=== PATIENT | female | born 1970 | race African-American/Black ===

== ENCOUNTER 2018-06-03 02:33 | Inpatient (IN) | payer MEDICAID, OTHER ==
[~2018-06-03] VITALS: Ht 170.2 cm; Wt 74.8 kg
[~2018-06-03 02:33] MED LIST: AMLO10TA80 PO; GABA-531 PO; HYDR25TA PO; L25 PO
[2018-06-03] MEDS ORDERED: VISCOUS LIDOCAINE 2% 15 ML UDC PO STA (03:12)
[2018-06-03] MEDS ORDERED: FAMOTIDINE 20MG/2ML VIAL IV STA (03:12)
[2018-06-03] MEDS ORDERED: MAGNESIUM/ALUMINUM HYDROXIDE/SIMETHICONE 30ML UDC PO STA (03:12)
[2018-06-03] MEDS ORDERED: SODIUM CHLORIDE 0.9% 1,000 ML IV ONE ×2 (03:12→06:30)
[2018-06-03] MEDS ORDERED: KETOROLAC 30MG/ML VIAL IV STA (03:12)
[2018-06-03] MEDS ORDERED: ONDANSETRON HCL 4MG/2ML INJ IV STA (03:12)
[2018-06-03 03:50] LABS: BASOPHILS % 0.3 % (0.0-2.0); HEMATOCRIT. 38.7 % (36.0-48.0); HEMOGLOBIN. 12.8 g/dL (12.0-16.0); LYMPHOCYTES % 7.5 % (20.0-50.0); MEAN CORPUSCULAR HEMOGLOBIN 30.1 pg (28.0-32.0); MEAN CORPUSCULAR VOLUME 91.2 fL (81.0-99.0); MEAN PLATELET VOLUME 9.3 fl (7.4-10.4); MONOCYTES % 5.8 % (2.0-8.0); NEUTROPHILS % 86.4 % (40.0-76.0); PLATELET 158 x1000/uL (130-400); RED BLOOD CELL COUNT 4.24 mill/uL (4.2-5.4); RED CELL DISTRIBUTION WIDTH 15.8 % (11.6-14.6)
[2018-06-03 03:56] LABS: CHLORIDE 107 mEq/L (98-107)
[2018-06-03] MEDS ORDERED: POTASSIUM CHLORIDE INJ 40 MEQ in DEXT 5% WATER 250 ML IV ONE (06:30)
[2018-06-03] MEDS ORDERED: MORPHINE SULFATE 4 MG/ML CPJ (NOT FOR IM USE) IV ONE (06:30)
[2018-06-03] MEDS: SODIUM CHLORIDE 0.9% 1,000 ML IV SCH ×3 (08:52→23:26)
[2018-06-03] MEDS ORDERED: ONDANSETRON HCL 4MG/2ML INJ IV PRN (09:00)
[2018-06-03] MEDS ORDERED: DIPHENHYDRAMINE 50MG/ML VIAL IV PRN (09:00)
[2018-06-03] MEDS ORDERED: ACETAMINOPHEN 325MG TABLET PO PRN (09:00)
[2018-06-03] MEDS ORDERED: MAGNESIUM/ALUMINUM HYDROXIDE/SIMETHICONE 30ML UDC PO PRN (09:00)
[2018-06-03] MEDS ORDERED: ZOLPIDEM TARTRATE 5MG TABLET PO PRN (09:00)
[2018-06-03] MEDS ORDERED: TRAMADOL 50MG TABLET PO PRN (09:00)
[2018-06-03] MEDS ORDERED: IPRATROPIUM/ALBUTEROL 0.5-3(2.5)MG/3ML NEB INH PRN (09:00)
[2018-06-03] MEDS ORDERED: NITROGLYCERIN 0.4MG TABLET SL SL PRN (09:00)
[2018-06-03] MEDS ORDERED: DOCUSATE SODIUM 100MG CAPSULE PO PRN (09:00)
[2018-06-03] MEDS ORDERED: LORAZEPAM 0.5MG TABLET PO PRN (09:00)
[2018-06-03] MEDS: CLONIDINE 0.1MG TABLET PO PRN ×2 (09:37→14:24)
[2018-06-03 09:55] LABS: CLARITY URINE CLEAR (CLEAR); COLOR URINE YELLOW (YELLOW); KETONES URINE 2+ (NEGATIVE); LEUKOCYTE ESTERASE URINE NEGATIVE (NEGATIVE); NITRITE URINE NEGATIVE (NEGATIVE); OCCULT BLOOD URINE NEGATIVE (NEGATIVE); PH URINE 6.5 (4.5-8.0); PROTEIN URINE NEGATIVE (NEGATIVE); SPECIFIC GRAVITY URINE 1.015 (1.005-1.030); UROBILINOGEN URINE 0.2 E.U./dL (0.2-1.0)
[2018-06-03 10:10] LABS: CHLORIDE 106 mEq/L (98-107)
[2018-06-03 10:11] LABS: ETHANOL BLOOD < 10 mg/dL
[2018-06-03 10:21] LABS: AMYLASE 366 IU/L (25-115)
[2018-06-03 10:35] LABS: *AMPHETAMINES SCREEN URINE NEGATIVE (NEGATIVE); *BARBITURATES SCREEN URINE NEGATIVE (NEGATIVE); *BENZODIAZEPINES SCREEN URINE NEGATIVE (NEGATIVE); *COCAINE SCREEN URINE NEGATIVE (NEGATIVE)
[2018-06-03 10:36] LABS: CANNABINOID URINE SCREEN PRESUMTIVE POSITIVE (NEGATIVE); METHADONE URINE SCREEN NEGATIVE (NEGATIVE); OPIATES URINE SCREEN NEGATIVE (NEGATIVE); PHENCYCLIDINE URINE SCREEN NEGATIVE (NEGATIVE)
[2018-06-03 14:00] VITALS: BP 165/83
[2018-06-03] MEDS: ENOXAPARIN 40MG/0.4ML SYR SUBCUT SCH (14:25)
[2018-06-03] MEDS: PANTOPRAZOLE SODIUM 40 MG/VIAL IV SCH (14:25)
[2018-06-03] MEDS: KETOROLAC 15MG/ML VIAL IV PRN ×2 (14:29→20:19)
[2018-06-03 16:46] VITALS: BP 164/83
[2018-06-03] MEDS ORDERED: POTASSIUM CHLORIDE 20MEQ TABLET SR PO NR (18:45)
[2018-06-03 20:00] VITALS: BP 174/108
[2018-06-03] MEDS: METOPROLOL TARTRATE 25MG TABLET PO SCH ×2 (20:19→22:57)
[2018-06-04] VITALS: BP 149/97
[2018-06-04] MEDS: KETOROLAC 15MG/ML VIAL IV PRN ×3 (02:17→14:57)
[2018-06-04 04:00] VITALS: BP 157/103
[2018-06-04] MEDS: SODIUM CHLORIDE 0.9% 1,000 ML IV SCH ×2 (05:44→11:32)
[2018-06-04 07:15] LABS: CHLORIDE 101 mEq/L (98-107)
[2018-06-04 07:22] LABS: AMYLASE 361 IU/L (25-115)
[2018-06-04 08:00] VITALS: BP 175/109
[2018-06-04] MEDS: PANTOPRAZOLE SODIUM 40 MG/VIAL IV SCH (09:20)
[2018-06-04] MEDS: ENOXAPARIN 40MG/0.4ML SYR SUBCUT SCH (09:20)
[2018-06-04 12:00] VITALS: BP 170/80
[2018-06-04 16:00] VITALS: BP 165/75
[2018-06-04 16:45] VITALS: BP 165/75
== END 2018-06-04 17:45 | disposition home or self-care (01) | DRG 282 ==
LOC: ER 02:33 → 6EST 06:24 → ENRESERV 11:51
PROVIDERS: ADMIT Internal Medicine; ATTEND Internal Medicine
DX: K85.20 Alcohol induced acute pancreatitis without necrosis or infection (principal); E44.1 Mild protein-calorie malnutrition; F17.200 Nicotine dependence, unspecified, uncomplicated; F10.10 Alcohol abuse, uncomplicated; I10 Essential (primary) hypertension; E87.6 Hypokalemia; F12.90 Cannabis use, unspecified, uncomplicated; Z79.899 Other long term (current) drug therapy; Z88.8 Allergy status to other drugs, medicaments and biological substances; Z68.25 Body mass index [BMI] 25.0-25.9, adult
CPT/HCPCS: 36415; 71045; 80305; 82150; 93970; 96361; 96374; 96375; 99291; C9113; J1200; J1650; J1885; J2405; J3480; J3490; J7030; J7040; J7060

== ENCOUNTER 2019-11-12 15:40 | Emergency (ER) | payer MEDICAID ==
[~2019-11-12] VITALS: Ht 167.6 cm; Wt 63.0 kg
[2019-11-12] MEDS ORDERED: SODIUM CHLORIDE 0.9% 1,000 ML IV ONE (15:55)
[2019-11-12 16:22] LABS: EOSINOPHILS % 0.4 % (0.0-5.0); HEMATOCRIT. 35.6 % (36.0-48.0); HEMOGLOBIN. 11.4 g/dL (12.0-16.0); LYMPHOCYTES % 15.1 % (20.0-50.0); MEAN CORPUSCULAR HEMOGLOBIN 25.6 pg (28.0-32.0); MEAN CORPUSCULAR VOLUME 79.7 fL (81.0-99.0); MEAN PLATELET VOLUME 8.4 fl (7.4-10.4); MONOCYTES % 5.3 % (2.0-8.0); NEUTROPHILS % 78.2 % (40.0-76.0); PLATELET 258 x1000/uL (130-400); RED BLOOD CELL COUNT 4.46 mill/uL (4.2-5.4); RED CELL DISTRIBUTION WIDTH 23.2 % (11.6-14.6)
[2019-11-12 16:28] LABS: INR 1.2; PROTHROMBIN TIME 12.3 sec (9.6-11.0)
[2019-11-12 16:29] LABS: CHLORIDE 109 mEq/L (98-107)
[2019-11-12 16:53] LABS: HCG SCREEN NEGATIVE
[2019-11-12 17:08] LABS: PLATELET ESTIMATE NORMAL
[2019-11-12 17:22] LABS: CLARITY URINE CLOUDY (CLEAR); COLOR URINE DARK YELLOW (YELLOW); KETONES URINE 2+ (NEGATIVE); LEUKOCYTE ESTERASE URINE TRACE (NEGATIVE); NITRITE URINE NEGATIVE (NEGATIVE); OCCULT BLOOD URINE 3+ (NEGATIVE); PROTEIN URINE 2+ (NEGATIVE); SPECIFIC GRAVITY URINE 1.024 (1.005-1.030)
[2019-11-12] MEDS ORDERED: NEOSTIGMINE METHYLSULFATE 1MG/ML 10 ML VIAL ONE (17:23)
[2019-11-12] MEDS ORDERED: GLYCOPYRROLATE 0.2 MG/ML 2ML VIAL ONE (17:24)
[2019-11-12 18:19] VITALS: BP 125/69
== END 2019-11-12 18:28 | disposition home or self-care (01) ==
LOC: ER 15:40
DX: R55 Syncope and collapse (principal); I10 Essential (primary) hypertension; D64.9 Anemia, unspecified; R42 Dizziness and giddiness; R53.1 Weakness; Z88.6 Allergy status to analgesic agent; Z88.8 Allergy status to other drugs, medicaments and biological substances; Z79.899 Other long term (current) drug therapy
CPT/HCPCS: 36415; 80053; 81003; 84703; 85025; 85610; 93005; 96360; 99284; J2710; J3490; J7030

== ENCOUNTER 2024-08-20 17:56 | Emergency (ER) | payer MEDICAID ==
[~2024-08-20] VITALS: Ht 167.6 cm; Wt 60.0 kg
[~2024-08-20 17:56] MED LIST changes: +CHLO25CA11 PO; +GABA-1180 PO; -GABA-531 PO; -L25 PO
[2024-08-20 18:32] VITALS: O2SAT 99
[2024-08-20] MEDS: MIDAZOLAM HCL 2 MG/2 ML VIAL IM ONE (18:32)
[2024-08-20] MEDS: OLANZAPINE 10 MG/VIAL IM ONE (18:32)
[2024-08-20 19:20] LABS: BASOPHILS % 1.2 % (0.0-2.0); EOSINOPHILS % 1.4 % (0.0-5.0); HEMATOCRIT. 38.2 % (36.0-48.0); HEMOGLOBIN. 12.3 g/dL (12.0-16.0); LYMPHOCYTES % 44.2 % (20.0-50.0); MEAN CORPUSCULAR HEMOGLOBIN 28.8 pg (28.0-32.0); MEAN CORPUSCULAR HGB CONC 32.3 g/dL (31.0-37.0); MEAN CORPUSCULAR VOLUME 89.2 fL (81.0-99.0); MEAN PLATELET VOLUME 8.5 fl (7.4-10.4); MONOCYTES % 4.4 % (2.0-8.0); NEUTROPHILS % 48.8 % (40.0-76.0); PLATELET 297 x1000/uL (130-400); RED BLOOD CELL COUNT 4.28 mill/uL (4.2-5.4); RED CELL DISTRIBUTION WIDTH 20.7 % (11.6-14.6); WHITE BLOOD COUNT 7.3 x1000/uL (4.5-11.0)
[2024-08-20 19:29] LABS: CHLORIDE 109 mEq/L (98-107); POTASSIUM 3.7 mEq/L (3.5-5.1); SODIUM 143 mEq/L (136-145)
[2024-08-20 19:30] LABS: CALCIUM 9.1 mg/dL (8.7-10.4); CARBON DIOXIDE 23 mEq/L (21-32)
[2024-08-20 19:35] LABS: CREATININE 0.7 mg/dL (0.6-1.0); GLUCOSE 105 mg/dL (70-105); UREA NITROGEN BLOOD 5 mg/dL (9-23)
[2024-08-20 19:48] LABS: ETHANOL BLOOD 469 mg/dL (<10)
[2024-08-20] MEDS ORDERED: LORAZEPAM 2MG/ML INJ IV ONE (21:15)
[2024-08-20] MEDS: LORAZEPAM 2MG/ML UD SYRINGE IV NR (21:16)
[2024-08-20] MEDS ORDERED: ONDANSETRON HCL 4MG/2ML INJ IV PRN (23:00)
[2024-08-20] MEDS ORDERED: MAGNESIUM/ALUMINUM HYDROXIDE/SIMETHICONE 30ML UDC PO PRN (23:00)
[2024-08-20] MEDS ORDERED: IPRATROPIUM/ALBUTEROL 0.5-3(2.5)MG/3ML NEB HHN PRN (23:00)
[2024-08-20] MEDS ORDERED: DOCUSATE SODIUM 100MG CAPSULE PO PRN (23:00)
[2024-08-20] MEDS ORDERED: GUAIFENESIN 200MG/10ML SUGAR FREE UDC PO PRN (23:00)
[2024-08-20] MEDS ORDERED: HYDRALAZINE 20MG/ML VIAL IV PRN (23:00)
[2024-08-20] MEDS ORDERED: ACETAMINOPHEN 325MG TABLET PO PRN ×2 (23:00)
[2024-08-20 23:25] LABS: INR 1.1
[2024-08-20 23:33] LABS: PHOSPHORUS 3.4 mg/dL (2.5-4.9)
[2024-08-20 23:36] LABS: VITAMIN B12 SERUM 340 pg/mL (211-911)
[2024-08-21] MEDS: MVI, ADULT NO.1 10 ML, FOLIC ACID 1 MG, THIAMINE HCL 100 MG in SODIUM CHLORIDE 0.9% 1,0... IV NR (00:25)
[2024-08-21 01:38] LABS: CLARITY URINE CLEAR (CLEAR); COLOR URINE YELLOW (YELLOW); GLUCOSE URINE NEGATIVE (NEGATIVE); KETONES URINE NEGATIVE (NEGATIVE); LEUKOCYTE ESTERASE URINE TRACE (NEGATIVE); NITRITE URINE NEGATIVE (NEGATIVE); OCCULT BLOOD URINE NEGATIVE (NEGATIVE); PH URINE 5.5 (4.5-8.0); PROTEIN URINE NEGATIVE (NEGATIVE); SPECIFIC GRAVITY URINE 1.006 (1.005-1.030); UROBILINOGEN URINE 0.2 E.U./dL (0.2-1.0)
[2024-08-21 01:58] LABS: *AMPHETAMINES SCREEN URINE NEGATIVE (NEGATIVE); *BARBITURATES SCREEN URINE NEGATIVE (NEGATIVE); *BENZODIAZEPINES SCREEN URINE PRESUMPTIVE POSITIVE (NEGATIVE); *COCAINE SCREEN URINE NEGATIVE (NEGATIVE); CANNABINOID URINE SCREEN NEGATIVE (NEGATIVE); ECSTASY MDMA SCREEN URINE NEGATIVE (NEGATIVE); METHADONE URINE SCREEN NEGATIVE (NEGATIVE); OPIATES URINE SCREEN NEGATIVE (NEGATIVE); PHENCYCLIDINE URINE SCREEN NEGATIVE (NEGATIVE)
[2024-08-21 02:09] LABS: BACTERIA URINE 1+; RBC URINE 0-2 /hpf (0-2); SQUAMOUS EPITHELIAL CELL URINE 1+ /lpf (RARE/1+)
[2024-08-21 02:10] LABS: WBC URINE 0-2 /hpf (0-2)
[2024-08-21 05:37] LABS: BASOPHILS % 0.8 % (0.0-2.0); CHLORIDE 109 mEq/L (98-107); EOSINOPHILS % 1.5 % (0.0-5.0); HEMATOCRIT. 39.3 % (36.0-48.0); HEMOGLOBIN. 12.7 g/dL (12.0-16.0); LYMPHOCYTES % 34.5 % (20.0-50.0); MEAN CORPUSCULAR HEMOGLOBIN 28.7 pg (28.0-32.0); MEAN CORPUSCULAR HGB CONC 32.2 g/dL (31.0-37.0); MEAN PLATELET VOLUME 8.6 fl (7.4-10.4); MONOCYTES % 6.4 % (2.0-8.0); NEUTROPHILS % 56.8 % (40.0-76.0); PLATELET 242 x1000/uL (130-400); POTASSIUM 3.8 mEq/L (3.5-5.1); RED BLOOD CELL COUNT 4.42 mill/uL (4.2-5.4); RED CELL DISTRIBUTION WIDTH 20.6 % (11.6-14.6); SODIUM 147 mEq/L (136-145); WHITE BLOOD COUNT 6.4 x1000/uL (4.5-11.0)
[2024-08-21 05:38] LABS: CALCIUM 9.3 mg/dL (8.7-10.4); CARBON DIOXIDE 24 mEq/L (21-32)
[2024-08-21 05:43] LABS: CREATINE KINASE MB FRACTION 1.8 ng/mL (0.5-3.6); CREATININE 0.6 mg/dL (0.6-1.0); GLUCOSE 80 mg/dL (70-105); TRIGLYCERIDE 45 mg/dL (0-150); UREA NITROGEN BLOOD 7 mg/dL (9-23)
[2024-08-21 05:44] LABS: LDL CHOLESTEROL 51 mg/dL (5-100)
[2024-08-21 05:45] LABS: ALBUMIN 4.7 g/dL (3.2-4.8); CHOLESTEROL 154 mg/dL (<200); CREATINE KINASE 258 IU/L (34-145); HDL CHOLESTEROL 94 mg/dL (>65)
[2024-08-21 05:47] LABS: THYROID STIMULATING HORMONE 0.53 uIU/mL (0.55-4.78)
[2024-08-21 06:00] VITALS: BP 143/74; PULSE 80; RESP 18; O2SAT 100
[2024-08-21] MEDS ORDERED: LORAZEPAM 2MG/ML UD SYRINGE IV PRN (07:30)
[2024-08-21] MEDS ORDERED: MAGNESIUM 2 G PREMIX 50 ML IV NR (07:30)
[2024-08-21] MEDS ORDERED: SODIUM CHLORIDE 0.45% 1,000 ML IV SCH (07:30)
[2024-08-21] MEDS ORDERED: THIAMINE HCL 100MG TABLET PO SCH (09:00)
[2024-08-21] MEDS ORDERED: ENOXAPARIN 40MG/0.4ML SYR SUBCUT SCH (09:00)
[2024-08-21] MEDS ORDERED: MULTIVITAMINS,THER W-MINERALS TABLET PO SCH (09:00)
[2024-08-21] MEDS ORDERED: PANTOPRAZOLE SODIUM 40 MG/VIAL IV SCH (09:00)
[2024-08-21] MEDS ORDERED: FOLIC ACID 1MG TABLET PO SCH (09:00)
== END 2024-08-21 07:15 | disposition left against medical advice (07) ==
LOC: ER 17:56 → EDBEDREQTM 21:38 → EDBEDREQ 21:38 → ER 08-21 07:15
DX: R56.9 Unspecified convulsions (principal); F10.10 Alcohol abuse, uncomplicated; R41.82 Altered mental status, unspecified; I10 Essential (primary) hypertension; Z79.899 Other long term (current) drug therapy; Z88.5 Allergy status to narcotic agent; Y90.8 Blood alcohol level of 240 mg/100 ml or more
CPT/HCPCS: 80048 ×2; 80320; 82607; 82962; 83690; 83735; 84100; 85025 ×2; 85610; 36415 ×2; 71045; 70450; 93005; 96372; 96375; 99291; 80061; 80305; 81003; 82040; 82550; 82553; 84443; 96365; J3490 ×3; J2060; J2250; J3411; J7030; A6449; Z7610; G0480